=== PATIENT | female | born 1955 | race Caucasian/White ===

== ENCOUNTER → 2019-01-30 | Outpatient (CLI) | payer OTHER | LOC: CAT 09:44 | DX: Z13.6 Encounter for screening for cardiovascular disorders (principal); E78.00 Pure hypercholesterolemia, unspecified; I25.10 Atherosclerotic heart disease of native coronary artery without angina pectoris ==

== ENCOUNTER → 2021-03-01 | Outpatient (CLI) | payer BC | LOC: SJCVC 11:17 | PROVIDERS: ATTEND Internal Medicine Cardiovascular Disease | DX: I21.9 Acute myocardial infarction, unspecified (principal); I08.1 Rheumatic disorders of both mitral and tricuspid valves; R94.31 Abnormal electrocardiogram [ECG] [EKG]; E78.5 Hyperlipidemia, unspecified; I10 Essential (primary) hypertension; D47.Z2 Castleman disease; I48.0 Paroxysmal atrial fibrillation; Z72.89 Other problems related to lifestyle; Z79.82 Long term (current) use of aspirin; Z79.899 Other long term (current) drug therapy; Z88.0 Allergy status to penicillin; Z88.8 Allergy status to other drugs, medicaments and biological substances ==